=== PATIENT | male | born 1950 | race Caucasian/White ===

== ENCOUNTER → 2021-01-26 | Outpatient (CLI) | payer MEDICARE, OTHER ==
[~2021-01-26] MED LIST: OMNIPAQUE 350 MG/ML, 100ML BOTTLE ONE
[2021-01-26 16:38] LABS: CREATININE 1.35 mg/dL (0.7-1.3)
== END | disposition home or self-care (01) ==
LOC: RAD 15:58
DX: K57.32 Diverticulitis of large intestine without perforation or abscess without bleeding (principal)
CPT/HCPCS: 36415; 74177; 82565; Q9967